=== PATIENT | female | born 1995 | race Caucasian/White ===

== ENCOUNTER 2017-02-04 12:15 | Emergency (ER) | payer BC, OTHER ==
[~2017-02-04 12:15] MED LIST: ANTIVERT25 MG PO; ATENOLOL25 MG PO; AUGMENTIN 875-1 EAC2 PO; AUGMENTIN 875-11 TAB PO; AZITHROMYCIN250 M1 PO; BACLOFEN10 M1 PO; BENADRYL25 M3 PO; BIRTH CONTROL; BUSPIRONE HCL10 M2 PO; BYSTOLIC2.5 M1 PO; BYSTOLIC5 M1 PO; CIPRO250 M2 PO; CIPRO500 M2 PO; CLONAZEPAM0.5 M2 PO; COLACE100 M1 PO; CYCLOBENZAPRINE5 M1 PO; CYMBALTA60 M1 PO; DEPO-PROVER150 MG/ML IM; FLEXERIL10 MG PO; FLOMAX0.4 M1 PO; FOLIC ACID0.4 MG PO; IBUPROFEN200 M3 PO; IBUPROFEN600 M1 PO; IBUPROFEN800 M1 PO; IBUPROFEN800 MG PO; KEFLEX500 M4 PO; KETOROLAC TROME10 MG PO; LYRICA75 MG/CAP PO; MACROBID 100 M100 M1 PO; MACROBID 100 M100 MG PO; MIDODRINE HCL2.5 MG PO; MIRENA BIRTH CONTROL; MOBIC7.5 M2 PO; MOTRIN800 MG PO; NAPROSYN500 M1 PO; NAPROXEN500 MG PO; NORCO 5/325 TAB1 TAB PO; NORCO 5/3251 TAB PO; OMEPRAZOLE20 M4 PO; OXYCODON-ACETA1 EAC4 PO; OXYCODONE/APAP PO; PERCOCET 5-3251 EACH PO; PERCOCET 5/3251 TAB PO; PHENERGAN12.5 MG/SU RC; PREDNISONE20 MG PO; PRENATAL1 EACH PO; PROAIR HFA8.5 GM INH; PROTONIX40 M2 PO; PROVENTIL HFA6.7 G1 IH; PROVENTIL HFA6.7 GM IH; REGLAN; REXULTI1 MG PO; SERTRALINE HCL50 M4 PO; THERMOTABS TAB1 EACH PO; TOPAMAX100 M2 PO; TRAMADOL HCL50 M2 PO; TYLENOL #31 TA1 PO; TYLENOL TA325 MG/TA1 PO; TYLENOL325 MG PO; ULTRAM50 M1 PO; VALTREX500 MG PO; VISTARIL25 M1; VISTARIL25 M1 PO; VITAMIN D31000 UNI3 PO; XANAX1 M1 PO; XULANE PATCH1 EACH TD; ZOFRAN ODT4 MG PO; ZOFRAN ODT4 MG/UDTAB PO; ZOFRAN4 M1 PO; ZOFRAN4 M2 PO; ZOFRAN4 MG PO; ZOLOFT25 M1 PO; ZOLOFT25 MG PO; ZOLOFT50 M1 PO; [UNRECOGNIZED DRUG - CODE] PO
[2017-02-04] MEDS ORDERED: BYSTOLIC5 M1 PO (12:32)
[2017-02-04] MEDS ORDERED: VRAYLAR3 MG PO (12:34)
[2017-02-04 13:27] LABS: BASO % 0.3 % (0-2); EOS % 1.6 % (0-7); EOSINOPHIL ABSOLUTE COUNT 0.2 tho/cmm (0.0-0.7); HCT-HEMATOCRIT 41.2 % (34.0-49.0); HGB-HEMOGLOBIN 13.8 gm/dl (12.0-15.5); IMMATURE GRANULOCYTES ABSOLUTE 0.01 tho/cmm (0-0.03); IMMATURE GRANULOCYTES PERCENT 0.1 % (0-0.3); LYMPH % 7.1 % (20-45); LYMPH ABSOLUTE COUNT 0.7 tho/cmm (0.8-4.5); MCH (MEAN CORPUSCULAR HGB) 28.6 pg (28.0-32.0); MCHC MEAN CORPUSCULAR HGB CONC 33.5 % (32.0-36.0); MCV (MEAN CELL VOLUME) 85.3 fl (82.0-96.0); MEAN PLATELET VOLUME 9.3 cmc (9.4-12.4); MONOCYTE ABSOLUTE COUNT 0.7 tho/cmm (0.0-1.2); NEUTROPHIL ABSOLUTE COUNT 8.7 tho/cmm (1.6-8.0); NEUTROPHIL-AUTOMATED 8.7 tho/cmm (1.6-8.0); NEUTROPHILS % 83.9 % (40-80); PLATELET COUNT 308 tho/cmm (150-450); RED BLOOD COUNT 4.83 mil/cmm (4.00-5.20); RED CELL DISTRIBUTION WIDTH 13.6 % (12.4-16.4); WHITE BLOOD COUNT 10.4 tho/cmm (4.0-10.0)
[2017-02-04 13:39] LABS: ALB/GLOB RATIO 1.2 (0.8-2.0); ALBUMIN 4.2 g/dl (3.5-5.0); ALKALINE PHOSPHATASE 79 U/L (33-138); ALT/SGPT 23 U/L (12-78); ANION GAP 12 mmol/L (0-20); AST/SGOT 22 U/L (10-40); BILIRUBIN,TOTAL 0.4 mg/dl (0-1.5); BLOOD UREA NITROGEN 12 mg/dl (6-24); CALCIUM 8.7 mg/dl (8.5-10.5); CARBON DIOXIDE-VENOUS 22 mmol/L (22-32); CHLORIDE 112 mmol/l (96-110); CREATININE 1.05 mg/dl (0.50-1.10); GLUCOSE 96 mg/dL (70-110); LIPASE 117 U/L (73-393); POTASSIUM 3.8 mmol/L (3.7-5.1); SODIUM 142 mmol/L (135-145); eGFR VALUE FOR BLACK 87 mL/Min
[2017-02-04 13:49] LABS: PREGNANCY-SERUM NEGATIVE (NEGATIVE)
[2017-02-04 14:05] LABS: URINE BILIRUBIN NEGATIVE (NEG); URINE BLOOD NEGATIVE (NEG); URINE GLUCOSE (UA) NEGATIVE (NEG); URINE KETONE NEGATIVE (NEG); URINE LEUKOCYTE ESTERASE NEGATIVE (NEG); URINE NITRITE NEGATIVE (NEG); URINE PROTEIN SMALL (NEG); URINE SPECIFIC GRAVITY 1.025 (1.003-1.030)
[2017-02-04 14:06] LABS: URINE APPEARANCE HAZY; URINE COLOR YELLOW
[2017-02-04 14:20] LABS: URINE RBC 0-2 /[HPF] (0-5)
[2017-02-04] MEDS ORDERED: TRAMADOL HCL50 M2 PO (15:52)
[2017-02-05] MEDS ORDERED: ULTRAM50 M1 PO (10:43)
[2017-02-05] MEDS ORDERED: ZOLOFT100 M1 PO (11:09)
[2017-02-05] MEDS ORDERED: LYRICA200 M1 PO (11:09)
[2017-02-05] MEDS ORDERED: ZOFRAN ODT4 MG PO (13:03)
[2017-07-09] MEDS ORDERED: ZITHROMAX TRI-500 M1 PO (07:49)
[2017-07-09] MEDS ORDERED: [UNRECOGNIZED DRUG - OTHER] PO (07:49)
[2017-07-09] MEDS ORDERED: BACTRIM DS TAB1 EAC2 PO (09:30)
[2017-07-09] MEDS ORDERED: TYLENOL WITH C1 EACH PO (09:30)
== END 2017-02-04 15:56 ==
LOC: EDMED 12:15
PROVIDERS: Physician Assistant
DX: R10.31 Right lower quadrant pain (principal); R11.10 Vomiting, unspecified; R19.7 Diarrhea, unspecified; Z90.49 Acquired absence of other specified parts of digestive tract
CPT/HCPCS: J1885; J2270; J2405; J7030

== ENCOUNTER 2017-02-05 10:24 | Emergency (ER) | payer BC, OTHER ==
[~2017-02-05 10:24] MED LIST changes: +VRAYLAR3 MG PO
[2017-02-05] MEDS ORDERED: ULTRAM50 M1 PO (10:43)
[2017-02-05] MEDS ORDERED: LYRICA200 M1 PO (11:09)
[2017-02-05] MEDS ORDERED: ZOLOFT100 M1 PO (11:09)
[2017-02-05 12:50] LABS: ANION GAP 14 mmol/L (0-20); BLOOD UREA NITROGEN 11 mg/dl (6-24); CALCIUM 8.2 mg/dl (8.5-10.5); CARBON DIOXIDE-VENOUS 19 mmol/L (22-32); CHLORIDE 111 mmol/l (96-110); CREATININE 0.84 mg/dl (0.50-1.10); GLUCOSE 92 mg/dL (70-110); SODIUM 141 mmol/L (135-145); eGFR VALUE FOR BLACK >90 mL/Min
[2017-02-05 12:57] LABS: POTASSIUM 3.4 mmol/L (3.7-5.1)
[2017-02-05] MEDS ORDERED: ZOFRAN ODT4 MG PO (13:03)
[2017-07-09] MEDS ORDERED: [UNRECOGNIZED DRUG - OTHER] PO (07:49)
[2017-07-09] MEDS ORDERED: ZITHROMAX TRI-500 M1 PO (07:49)
[2017-07-09] MEDS ORDERED: BACTRIM DS TAB1 EAC2 PO (09:30)
[2017-07-09] MEDS ORDERED: TYLENOL WITH C1 EACH PO (09:30)
== END 2017-02-05 13:12 ==
LOC: EDMED 10:24
PROVIDERS: Emergency Medicine
DX: K52.9 Noninfective gastroenteritis and colitis, unspecified (principal); E87.6 Hypokalemia; Z87.442 Personal history of urinary calculi; Z90.49 Acquired absence of other specified parts of digestive tract
CPT/HCPCS: J2405; J7030

== ENCOUNTER 2017-04-07 07:12 | Emergency (ER) | payer BC, OTHER ==
[~2017-04-07 07:12] MED LIST changes: +LYRICA200 M1 PO; +ZOLOFT100 M1 PO
[2017-04-07] MEDS ORDERED: LAMICTAL100 M2 PO (07:19)
[2017-04-07 08:17] LABS: URINE APPEARANCE CLEAR; URINE BILIRUBIN NEGATIVE (NEG); URINE BLOOD NEGATIVE (NEG); URINE COLOR YELLOW; URINE GLUCOSE (UA) NEGATIVE (NEG); URINE KETONE NEGATIVE (NEG); URINE LEUKOCYTE ESTERASE NEGATIVE (NEG); URINE NITRITE NEGATIVE (NEG); URINE PROTEIN NEGATIVE (NEG)
[2017-04-07 08:38] LABS: BASO % 0.4 % (0-2); EOS % 2.4 % (0-7); EOSINOPHIL ABSOLUTE COUNT 0.2 tho/cmm (0.0-0.7); HCT-HEMATOCRIT 41.4 % (34.0-49.0); HGB-HEMOGLOBIN 13.6 gm/dl (12.0-15.5); IMMATURE GRANULOCYTES ABSOLUTE 0.01 tho/cmm (0-0.03); IMMATURE GRANULOCYTES PERCENT 0.1 % (0-0.3); LYMPH % 21.1 % (20-45); LYMPH ABSOLUTE COUNT 1.6 tho/cmm (0.8-4.5); MCH (MEAN CORPUSCULAR HGB) 28.5 pg (28.0-32.0); MCHC MEAN CORPUSCULAR HGB CONC 32.9 % (32.0-36.0); MCV (MEAN CELL VOLUME) 86.6 fl (82.0-96.0); MEAN PLATELET VOLUME 9.1 cmc (9.4-12.4); MONO % 5.5 % (0-12); MONOCYTE ABSOLUTE COUNT 0.4 tho/cmm (0.0-1.2); NEUTROPHIL ABSOLUTE COUNT 5.3 tho/cmm (1.6-8.0); NEUTROPHIL-AUTOMATED 5.3 tho/cmm (1.6-8.0); NEUTROPHILS % 70.5 % (40-80); PLATELET COUNT 288 tho/cmm (150-450); RED BLOOD COUNT 4.78 mil/cmm (4.00-5.20); RED CELL DISTRIBUTION WIDTH 13.4 % (12.4-16.4); WHITE BLOOD COUNT 7.6 tho/cmm (4.0-10.0)
[2017-04-07] MEDS ORDERED: ZOFRAN4 M2 PO (09:51)
[2017-07-09] MEDS ORDERED: ZITHROMAX TRI-500 M1 PO (07:49)
[2017-07-09] MEDS ORDERED: [UNRECOGNIZED DRUG - OTHER] PO (07:49)
[2017-07-09] MEDS ORDERED: TYLENOL WITH C1 EACH PO (09:30)
[2017-07-09] MEDS ORDERED: BACTRIM DS TAB1 EAC2 PO (09:30)
== END 2017-04-07 10:03 ==
LOC: EDMED 07:12
PROVIDERS: Emergency Medicine
DX: O34.81 Maternal care for other abnormalities of pelvic organs, first trimester (principal); N83.201 Unspecified ovarian cyst, right side; O99.341 Other mental disorders complicating pregnancy, first trimester; F32.9 Major depressive disorder, single episode, unspecified; Z3A.00 Weeks of gestation of pregnancy not specified; Z90.89 Acquired absence of other organs; Z98.890 Other specified postprocedural states

== ENCOUNTER 2017-04-24 07:42 | Emergency (ER) | payer BC ==
[~2017-04-24 07:42] MED LIST changes: +LAMICTAL100 M2 PO
[2017-04-24] MEDS ORDERED: PRENATAL VITAM1 EA12 PO (08:06)
[2017-04-24 08:26] LABS: URINE APPEARANCE CLEAR; URINE BILIRUBIN NEGATIVE (NEG); URINE BLOOD NEGATIVE (NEG); URINE COLOR YELLOW; URINE GLUCOSE (UA) NEGATIVE (NEG); URINE KETONE NEGATIVE (NEG); URINE LEUKOCYTE ESTERASE POSITIVE (NEG); URINE NITRITE NEGATIVE (NEG); URINE PH 6.5 (5.0-8.0); URINE PROTEIN SMALL (NEG)
[2017-04-24 08:38] LABS: URINE RBC 0 /[HPF] (0-5)
[2017-04-24 08:46] LABS: BASO % 0.2 % (0-2); EOS % 2.5 % (0-7); EOSINOPHIL ABSOLUTE COUNT 0.2 tho/cmm (0.0-0.7); HCT-HEMATOCRIT 41.5 % (34.0-49.0); HGB-HEMOGLOBIN 13.7 gm/dl (12.0-15.5); IMMATURE GRANULOCYTES ABSOLUTE 0.03 tho/cmm (0-0.03); IMMATURE GRANULOCYTES PERCENT 0.4 % (0-0.3); LYMPH % 17.5 % (20-45); LYMPH ABSOLUTE COUNT 1.5 tho/cmm (0.8-4.5); MCV (MEAN CELL VOLUME) 84.7 fl (82.0-96.0); MONO % 6.6 % (0-12); MONOCYTE ABSOLUTE COUNT 0.6 tho/cmm (0.0-1.2); NEUTROPHIL ABSOLUTE COUNT 6.1 tho/cmm (1.6-8.0); NEUTROPHIL-AUTOMATED 6.1 tho/cmm (1.6-8.0); NEUTROPHILS % 72.8 % (40-80); PLATELET COUNT 266 tho/cmm (150-450); RED CELL DISTRIBUTION WIDTH 13.4 % (12.4-16.4); WHITE BLOOD COUNT 8.4 tho/cmm (4.0-10.0)
[2017-04-24 09:02] LABS: ANION GAP 11 mmol/L (0-20); BLOOD UREA NITROGEN 7 mg/dl (6-24); CALCIUM 8.7 mg/dl (8.5-10.5); CARBON DIOXIDE-VENOUS 24 mmol/L (22-32); CHLORIDE 108 mmol/l (96-110); CREATININE 0.76 mg/dl (0.50-1.10); GLUCOSE 82 mg/dL (70-110); POTASSIUM 4.2 mmol/L (3.7-5.1); SODIUM 139 mmol/L (135-145); eGFR VALUE FOR BLACK >90 mL/Min
[2017-04-24] MEDS ORDERED: ZOFRAN ODT4 MG PO (10:03)
[2017-04-24] MEDS ORDERED: FLOMAX0.4 M1 PO (10:03)
[2017-04-24] MEDS ORDERED: PERCOCET 5-3251 EACH PO (10:03)
[2017-07-09] MEDS ORDERED: [UNRECOGNIZED DRUG - OTHER] PO (07:49)
[2017-07-09] MEDS ORDERED: ZITHROMAX TRI-500 M1 PO (07:49)
[2017-07-09] MEDS ORDERED: TYLENOL WITH C1 EACH PO (09:30)
[2017-07-09] MEDS ORDERED: BACTRIM DS TAB1 EAC2 PO (09:30)
== END 2017-04-24 10:47 ==
LOC: EDMED 07:42
PROVIDERS: Emergency Medicine
DX: R10.9 Unspecified abdominal pain (principal); R11.2 Nausea with vomiting, unspecified; F32.9 Major depressive disorder, single episode, unspecified; Z87.442 Personal history of urinary calculi; Z90.49 Acquired absence of other specified parts of digestive tract; Z90.89 Acquired absence of other organs
CPT/HCPCS: J1170; J2405; J7030

== ENCOUNTER 2017-04-27 07:19 | Emergency (ER) | payer BC ==
[~2017-04-27 07:19] MED LIST changes: +PRENATAL VITAM1 EA12 PO
[2017-04-27 08:02] LABS: BASO % 0.4 % (0-2); EOS % 2.3 % (0-7); EOSINOPHIL ABSOLUTE COUNT 0.2 tho/cmm (0.0-0.7); IMMATURE GRANULOCYTES ABSOLUTE 0.01 tho/cmm (0-0.03); IMMATURE GRANULOCYTES PERCENT 0.1 % (0-0.3); LYMPH % 16.9 % (20-45); LYMPH ABSOLUTE COUNT 1.3 tho/cmm (0.8-4.5); MCH (MEAN CORPUSCULAR HGB) 27.9 pg (28.0-32.0); MCHC MEAN CORPUSCULAR HGB CONC 33.3 % (32.0-36.0); MCV (MEAN CELL VOLUME) 83.7 fl (82.0-96.0); MEAN PLATELET VOLUME 8.9 cmc (9.4-12.4); MONO % 4.6 % (0-12); MONOCYTE ABSOLUTE COUNT 0.4 tho/cmm (0.0-1.2); NEUTROPHIL ABSOLUTE COUNT 5.9 tho/cmm (1.6-8.0); NEUTROPHIL-AUTOMATED 5.9 tho/cmm (1.6-8.0); NEUTROPHILS % 75.7 % (40-80); PLATELET COUNT 298 tho/cmm (150-450); RED BLOOD COUNT 5.02 mil/cmm (4.00-5.20); RED CELL DISTRIBUTION WIDTH 13.3 % (12.4-16.4); WHITE BLOOD COUNT 7.8 tho/cmm (4.0-10.0)
[2017-04-27 08:14] LABS: ALBUMIN 3.9 g/dl (3.5-5.0); ALKALINE PHOSPHATASE 63 U/L (33-138); ALT/SGPT 27 U/L (12-78); ANION GAP 10 mmol/L (0-20); AST/SGOT 16 U/L (10-40); BILIRUBIN,TOTAL 0.4 mg/dl (0-1.5); BLOOD UREA NITROGEN 8 mg/dl (6-24); CALCIUM 8.6 mg/dl (8.5-10.5); CARBON DIOXIDE-VENOUS 24 mmol/L (22-32); CHLORIDE 107 mmol/l (96-110); CREATININE 0.67 mg/dl (0.50-1.10); GLUCOSE 82 mg/dL (70-110); POTASSIUM 3.9 mmol/L (3.7-5.1); SODIUM 137 mmol/L (135-145); eGFR VALUE FOR BLACK >90 mL/Min
[2017-04-27 09:30] LABS: URINE BILIRUBIN NEGATIVE (NEG); URINE BLOOD NEGATIVE (NEG); URINE GLUCOSE (UA) NEGATIVE (NEG); URINE KETONE SMALL (NEG); URINE LEUKOCYTE ESTERASE POSITIVE (NEG); URINE NITRITE NEGATIVE (NEG); URINE PROTEIN SMALL (NEG); URINE SPECIFIC GRAVITY 1.015 (1.003-1.030)
[2017-04-27 09:31] LABS: URINE APPEARANCE HAZY; URINE COLOR YELLOW
[2017-04-27 09:41] LABS: URINE BACTERIA 1+; URINE MUCUS 1+
[2017-04-27] MEDS ORDERED: MACROBID 100 M100 M1 PO (10:22)
[2017-07-09] MEDS ORDERED: [UNRECOGNIZED DRUG - OTHER] PO (07:49)
[2017-07-09] MEDS ORDERED: ZITHROMAX TRI-500 M1 PO (07:49)
[2017-07-09] MEDS ORDERED: TYLENOL WITH C1 EACH PO (09:30)
[2017-07-09] MEDS ORDERED: BACTRIM DS TAB1 EAC2 PO (09:30)
== END 2017-04-27 10:35 ==
LOC: EDMED 07:19
PROVIDERS: Emergency Medicine
DX: O26.891 Other specified pregnancy related conditions, first trimester (principal); R10.11 Right upper quadrant pain; O99.89 Other specified diseases and conditions complicating pregnancy, childbirth and the puerperium; R11.0 Nausea; O99.341 Other mental disorders complicating pregnancy, first trimester; F32.9 Major depressive disorder, single episode, unspecified; Z3A.01 Less than 8 weeks gestation of pregnancy; Z85.43 Personal history of malignant neoplasm of ovary; Z90.49 Acquired absence of other specified parts of digestive tract; Z98.890 Other specified postprocedural states
CPT/HCPCS: J1170; J2405; J7030